=== PATIENT | female | born 1970 | race Caucasian/White ===

== ENCOUNTER 2020-09-23 01:31 | Day surgery (SDC) | payer OTHER, SELFPAY ==
[2020-09-16 14:57] VITALS: BMI 25.6
[2020-09-23 09:54] VITALS: BP 115/83; PULSE 90; RESP 18; TEMP 36.3; O2SAT 100
--- NOTE | 2020-09-23 10:08 | WPDHPUPDATE1 ---
History and Physical Update Update Date/Time: 09/23/20 10:08 History and Physical has been reviewed, including an updated exam of the patient. There are NO changes in the patient's condition. Risks, benefits, and alternatives have been discussed and questions answered. Patient agrees to proceed with procedure.
[2020-09-23] MEDS: BENZOCAINE (*SP) 60 ML SPRAY CAN (HURRICAINE) 1 SPRAY MUCOUS MEM (10:37)
[2020-09-23 10:48] VITALS: BP 84/57; PULSE 86; RESP 17; O2SAT 100
[2020-09-23 10:58] VITALS: BP 90/63; PULSE 79; RESP 16; O2SAT 100
[2020-09-23 11:08] VITALS: BP 98/65; PULSE 76; RESP 17; O2SAT 100
--- NOTE | 2020-09-23 11:30 | SUR.PHASEII ---
iv dc'd prior to discharge. site clear.
== END 2020-09-23 11:30 | disposition home or self-care (01) ==
PROVIDERS: PCP Physician Assistant; Visit Provider Internal Medicine Gastroenterology
PROC: 0DJ08ZZ Inspection of Upper Intestinal Tract, Via Natural or Artificial Opening Endoscopic (ICD-10-PCS; CPT 43235; principal; 2020-09-23 11:00)
DX: K21.00 Gastro-esophageal reflux disease with esophagitis, without bleeding (principal); K25.3 Acute gastric ulcer without hemorrhage or perforation; K22.2 Esophageal obstruction
CPT/HCPCS: 43239; 43450; 88305; J2704

== ENCOUNTER 2020-12-30 00:08 | Day surgery (SDC) | payer OTHER, SELFPAY ==
[2020-12-16 13:06] VITALS: BMI 24.9
[2020-12-30 07:39] VITALS: BP 123/84; PULSE 99; RESP 16; TEMP 35.8; O2SAT 100
[2020-12-30] MEDS: LACTATED RINGERS 1,000 ML 150 ML IV CONT (07:52)
--- NOTE | 2020-12-30 08:05 | P.PNAN_ITS ---
Anes - Initial Pre Proc Eval Procedure: Operation Date: 12/30/20 08:30 Proposed Procedures p Esophagogastroduodenoscopy & Screening Colonoscopy - Efren Mukherjee MD Date/Time: 12/30/20 08:05 Surgeon: Efren Mukherjee MD Pre Op Diagnosis: hx of colon polyps, erosive esophagitis Patient Data Age: 50 Gender: F Height: 1.68 m Weight: 73.1 kg Last Vital Signs Temp 35.8 C L 12/30/20 07:39 Pulse 99 12/30/20 07:39 Resp 16 12/30/20 07:39 BP 123/84 12/30/20 07:39 Pulse Ox 100 12/30/20 07:39 Allergies Allergy/AdvReac Type Severity Reaction Status Date / Time No Known Allergies Verified 12/30/20 07:38 Home Medications Medication Instructions Recorded Confirmed Type carisoprodol 350 mg tablet 350 mg PO HS PRN tablet 09/11/20 12/30/20 History duloxetine 60 mg capsule,delayed 60 mg PO DAILY 09/11/20 12/30/20 History release escitalopram oxalate 10 mg tablet 10 mg PO HS 09/11/20 12/30/20 History gabapentin 600 mg tablet 600 mg PO QAM tablet 09/11/20 12/30/20 History omeprazole 40 mg capsule,delayed 40 mg PO DAILY #90 cap 09/11/20 12/30/20 Rx release rosuvastatin 20 mg tablet 20 mg PO DAILY 09/11/20 12/30/20 History tramadol 50 mg tablet 50 mg PO Q6H PRN 09/11/20 12/30/20 History zolpidem 10 mg tablet 10 mg PO QHS 09/11/20 12/30/20 History gabapentin 1,200 mg PO QPM 09/16/20 12/30/20 History Patient hx anesthesia problems: none Family hx anesthesia problems: none Results Review: All pre-operative results and documents have been reviewed as part of the pre-operative evaluation. [facility] Past Medical History Medical History Arthritis Fibromyalgia IBS (irritable bowel syndrome) Surgical History Surgical History History of hip replacement Social History Social History Smoking packs per day: 1 Smoking cigarettes per day: 20.0 Years smoked: 20 Smoking pack-years: 20.00 Smoking status: Former smoker Tobacco type: cigarettes Smoking end date: 10/23/20 Alcohol intake: never Substance use: never Substance use type: does not use Living arrangements: with family Spiritual care concerns: No Anes - Eval Final PreProcedure Day of Procedure 12/30/20 08:05 Patient weight: overweight Heart: regular rate and rhythm Lungs: clear to auscultation Airway: Mallampati scale class II Neurological: alert and oriented Last oral intake: >/= 8 hours ASA classification: III Emergent: no Anesthetic plan: proceed Anesthesia type and monitoring: general GIVS and standard monitoring Results Review: All pre-operative results and documents have been reviewed as part of the pre-operative evaluation. Informed Consent: The patient's anesthetic plan and its attendant risks and benefits were discussed with the patient/family/POA. Questions were solicited and answers provided to the satisfaction of the patient/family/POA.
--- NOTE | 2020-12-30 08:21 | WPDGICN ---
Assessment and Plan Assessment and plan (1) GERD (gastroesophageal reflux disease): Code(s): K21.9 - Gastro-esophageal reflux disease without esophagitis Status: Acute Assessment and Plan: Patient has ongoing dysphagia. Known to have severe erosive esophagitis consistent with GE reflux disease plan is for EGD to see if additional dilatation is required also to exclude Hodges's esophagus. Long-term use of PPI is advised. Anti-reflux measures encouraged. Further recommendations will be given after endoscopy. (2) History of colon polyps: Code(s): Z86.010 - Personal history of colonic polyps Status: Acute Assessment and Plan: Patient has a prior history of colon polyps by colonoscopy. This was 5 years ago. Plan is for surveillance colonoscopy now on a 5 year intervals. GI Consult Note Consult date/time: 12/30/20 08:21 HPI: Carisa Cedillo is a 50 year old female Presents for follow-up EGD. Patient had EGD in September of this year with rather profound erosive esophagitis. She has been maintained on pantoprazole 40mg p.o. b.i.d. subsequently. She continues to have some difficulty swallowing with food catching the mid substernal portion the chest. This happens primarily with larger pieces of food and meat. Patient denies any bleeding or weight loss. She presents today for follow-up EGD to document healing of erosive esophagitis and possible dilatation. Additionally patient has a history of colon polyps removed from the colon 5 years ago. Previously 5 procedure was performed in [place]. She presents today for follow-up because of prior history of colon polyps. Review of Systems Review of Systems: All systems reviewed & are unremarkable except as noted in HPI and below [facility] Past Medical History Medical History Arthritis Fibromyalgia IBS (irritable bowel syndrome) Surgical History Surgical History History of hip replacement Social History Social History Smoking packs per day: 1 Smoking cigarettes per day: 20.0 Years smoked: 20 Smoking pack-years: 20.00 Smoking status: Former smoker Tobacco type: cigarettes Smoking end date: 10/23/20 Alcohol intake: never Substance use: never Substance use type: does not use Living arrangements: with family Spiritual care concerns: No Meds Home Medications and Allergies Home Medications Medication Instructions Recorded Confirmed Type carisoprodol 350 mg tablet 350 mg PO HS PRN tablet 09/11/20 12/30/20 History duloxetine 60 mg capsule,delayed 60 mg PO DAILY 09/11/20 12/30/20 History release escitalopram oxalate 10 mg tablet 10 mg PO HS 09/11/20 12/30/20 History gabapentin 600 mg tablet 600 mg PO QAM tablet 09/11/20 12/30/20 History omeprazole 40 mg capsule,delayed 40 mg PO DAILY #90 cap 09/11/20 12/30/20 Rx release rosuvastatin 20 mg tablet 20 mg PO DAILY 09/11/20 12/30/20 History tramadol 50 mg tablet 50 mg PO Q6H PRN 09/11/20 12/30/20 History zolpidem 10 mg tablet 10 mg PO QHS 09/11/20 12/30/20 History gabapentin 1,200 mg PO QPM 09/16/20 12/30/20 History Allergies Allergy/AdvReac Type Severity Reaction Status Date / Time No Known Allergies Verified 12/30/20 07:38 Vital Signs Vital Signs - 24 hr 12/30/20 07:39 Temperature 96.5 F L Pulse Rate 99 Respiratory Rate 16 Blood Pressure 123/84 Pulse Oximetry 100 Exam Narrative: Physical exam reveals patient be alert. Vital signs stable. HEENT exam is unremarkable. Patient is anicteric. Lungs are clear to auscultation and percussion. Heart is without murmur or extra sounds. Abdominal exam bowel sounds are present soft nontender with no organomegaly. Digital external rectal exam is normal.
[2020-12-30 08:44] VITALS: BP 97/70; PULSE 90; RESP 16; O2SAT 100
--- NOTE | 2020-12-30 08:45 | SUR.OPER ---
EGD START 832, END 835 COLONOSCOPY START 839, END 841 FOR POOR PREP
[2020-12-30 08:54] VITALS: BP 101/74; PULSE 85; RESP 16; O2SAT 100
[2020-12-30 09:02] VITALS: BP 111/80; PULSE 86; RESP 16; O2SAT 100
== END 2020-12-30 09:12 | disposition home or self-care (01) ==
PROVIDERS: PCP Physician Assistant; Visit Provider Internal Medicine Gastroenterology
PROC: 0DJ08ZZ Inspection of Upper Intestinal Tract, Via Natural or Artificial Opening Endoscopic (ICD-10-PCS; CPT 43235; principal; 2020-12-30 08:30)
DX: Z12.11 Encounter for screening for malignant neoplasm of colon (principal); Z86.010 Personal history of colon polyps; R13.19 Other dysphagia; K21.00 Gastro-esophageal reflux disease with esophagitis, without bleeding; K22.70 Barrett's esophagus without dysplasia; M19.90 Unspecified osteoarthritis, unspecified site; M79.7 Fibromyalgia; K58.9 Irritable bowel syndrome, unspecified; Z87.891 Personal history of nicotine dependence
CPT/HCPCS: 45378; 43239; 88305; J2704; J7120